=== PATIENT | male | born 1940 | race Caucasian/White ===

== ENCOUNTER 2024-10-17 18:07 | Inpatient (IN) | payer MEDICARE ==
[~2024-10-17] VITALS: Ht 153.4 cm; Wt 46.9 kg
[2024-10-17] MEDS ORDERED: DOCU100C58 PO (18:26)
[2024-10-17] MEDS ORDERED: ACET325T53 PO (18:26)
[2024-10-17] MEDS ORDERED: SITA25TA PO (18:26)
[2024-10-17] MEDS ORDERED: METF-440 PO (18:26)
[2024-10-17] MEDS ORDERED: HYDR25TA86 PO (18:26)
[2024-10-17] MEDS: IV NS 1000 ML 1,000 ML IV ONE (18:39)
[2024-10-17 18:42] LABS: PLATELET COUNT (AUTO) 500 K/uL (152-348); RED BLOOD CELL COUNT(AUTO) 3.88 MIL/uL (4.06-5.63); RED CELL DISTRIBUTION WIDTH 14.8 % (12.1-16.2); WHITE BLOOD COUNT (AUTO) 11.0 K/uL (3.6-10.2)
[2024-10-17 18:47] LABS: CREATININE 1.1 mg/dL (0.6-1.3); SODIUM SERUM 137 mmol/L (136-145); UREA NITROGEN, BLOOD 25 mg/dL (7-18)
[2024-10-17 18:52] LABS: ASPARTATE AMINOTRANSFERASE 9 U/L (15-37); TOTAL PROTEIN, SERUM 6.3 g/dL (6.4-8.2)
[2024-10-17 20:27] LABS: *CLARITY,URINE CLOUDY (CLEAR); *COLOR,URINE YELLOW (YELLOW); *PROTEIN,URINE 4+ (NEGATIVE)
[2024-10-17 20:28] LABS: *BILIRUBIN,URIN 1+ (NEGATIVE); *BLOOD, URINE 1+ (NEGATIVE); *KETONES,URINE TRACE (NEGATIVE); *UROBILINOGEN,URINE 0.2 E.U./dl (NORMAL); LEUKOCYTE ESTERASE ,URINE 3+ (NEGATIVE); NITRITE, URINE POSITIVE (NEGATIVE); UGLUCOSE NEGATIVE (NEGATIVE)
[2024-10-17 20:30] LABS: SQUAMOUS EPITHELIAL CELL,UR FEW /HPF (NONE SEEN)
[2024-10-17 21:58] VITALS: BP 151/76; TEMP 98.2; O2SAT 94
[2024-10-17] MEDS ORDERED: ONDANSETRON 4 MG/2 ML VIAL IV PRN (23:00)
[2024-10-17 23:30] VITALS: BP 158/73; TEMP 97.8; O2SAT 99
[2024-10-17] MEDS ORDERED: CEFTRIAXONE /D5W 50ML IVPB **ER PYXIS IV ONE (23:56)
[2024-10-18] MEDS: CEFTRIAXONE 1 G in IV DEXTROSE 5% 50 ML IV SCH (00:08)
[2024-10-18] MEDS: ENALAPRILAT DIHYDRATE 1.25 MG/1 ML VIAL IV PRN (04:51)
[2024-10-18 05:36] VITALS: BP 133/66; TEMP 97.6; O2SAT 97
[2024-10-18] MEDS: PANTOPRAZOLE SODIUM 40 MG TABLET.DR PO SCH (06:21)
[2024-10-18 07:03] LABS: PLATELET COUNT (AUTO) 429 K/uL (152-348); RED BLOOD CELL COUNT(AUTO) 3.68 MIL/uL (4.06-5.63); RED CELL DISTRIBUTION WIDTH 14.5 % (12.1-16.2); WHITE BLOOD COUNT (AUTO) 10.8 K/uL (3.6-10.2)
[2024-10-18 07:35] LABS: ASPARTATE AMINOTRANSFERASE 12 U/L (15-37); CREATININE 1.0 mg/dL (0.6-1.3); SODIUM SERUM 137 mmol/L (136-145); TOTAL PROTEIN, SERUM 6.3 g/dL (6.4-8.2); UREA NITROGEN, BLOOD 21 mg/dL (7-18)
[2024-10-18 07:44] VITALS: BP 116/61; TEMP 97.6; O2SAT 98
[2024-10-18 08:49] LABS: IRON, SERUM 33 ug/dL (50-175)
[2024-10-18 11:46] VITALS: BP 128/53; TEMP 98; O2SAT 96
[2024-10-18] MEDS ORDERED: DEXTROSE 50% 50 ML DISP.SYRIN IV PRN (13:00)
[2024-10-18 15:30] VITALS: BP 144/65; TEMP 97.8; O2SAT 96
[2024-10-18] MEDS: BLOOD SUGAR DIAGNOSTIC 1 EACH STRIP VI SCH (16:46)
[2024-10-18] MEDS: INSULIN REGULAR, HUMAN 1000 UNIT/10 ML VIAL SQ PRN (17:32)
[2024-10-18 19:50] VITALS: BP 123/67; TEMP 97.8; O2SAT 98
[2024-10-18] MEDS ORDERED: IOHEXOL 300MG/ML 100 ML INFUS..BTL ONE (21:48)
[2024-10-18] MEDS ORDERED: IV NORMAL SALINE 250 ML IV ONE (21:48)
[2024-10-18] MEDS ORDERED: SWABABLE VALVE TRANSFER SET EA MC ONE (21:48)
[2024-10-18] MEDS: CLOTRIMAZOLE/BETAMET DIPROP CREAM 15 GM TUBE TOP SCH (22:23)
[2024-10-18] MEDS: DOCUSATE SODIUM 100 MG CAPSULE PO SCH (22:23)
[2024-10-18] MEDS: REMEDY ESSENTIAL ZINC PASTE 113 GM TP SCH (22:24)
[2024-10-19 00:55] VITALS: BP 120/64; TEMP 98.7; O2SAT 97
[2024-10-19 05:45] LABS: PLATELET COUNT (AUTO) 421 K/uL (152-348); RED BLOOD CELL COUNT(AUTO) 3.47 MIL/uL (4.06-5.63); RED CELL DISTRIBUTION WIDTH 14.9 % (12.1-16.2); WHITE BLOOD COUNT (AUTO) 10.4 K/uL (3.6-10.2)
[2024-10-19 06:29] LABS: CREATININE 1.1 mg/dL (0.6-1.3); SODIUM SERUM 137 mmol/L (136-145); UREA NITROGEN, BLOOD 20 mg/dL (7-18)
[2024-10-19 06:42] LABS: IRON, SERUM 42 ug/dL (50-175)
[2024-10-19 06:43] VITALS: BP 117/65; TEMP 98.5; O2SAT 97
[2024-10-19 07:23] VITALS: BP 112/65; TEMP 97.8; O2SAT 98
[2024-10-19 11:09] VITALS: BP 145/63; TEMP 99.3; O2SAT 98
[2024-10-19 15:57] VITALS: BP 121/59; TEMP 98.7; O2SAT 98
[2024-10-19] MEDS: CEFEPIME HCL 1 G in IV DEXTROSE 5% 50 ML IV SCH (20:43)
[2024-10-19] MEDS ORDERED: CEFEPIME HCL 2 GM in IV DEXTROSE 5% 100 ML IV SCH (22:00)
[2024-10-20 07:17] VITALS: BP 147/77; TEMP 98.8; O2SAT 98
[2024-10-20 07:31] LABS: CREATININE 0.9 mg/dL (0.6-1.3); SODIUM SERUM 138 mmol/L (136-145); UREA NITROGEN, BLOOD 23 mg/dL (7-18)
[2024-10-20 07:39] LABS: PLATELET COUNT (AUTO) 473 K/uL (152-348); RED BLOOD CELL COUNT(AUTO) 3.58 MIL/uL (4.06-5.63); RED CELL DISTRIBUTION WIDTH 14.3 % (12.1-16.2); WHITE BLOOD COUNT (AUTO) 11.0 K/uL (3.6-10.2)
[2024-10-20 12:00] VITALS: BP 147/79; TEMP 98.2; O2SAT 100
[2024-10-20] MEDS ORDERED: IOHEXOL 300MG/ML 100 ML INFUS..BTL ONE (15:14)
[2024-10-20 15:18] LABS: IRON, SERUM 36.0 ug/dL (50-175); LACTATE DEHYDROGENASE 230.0 U/L (85-227)
[2024-10-20] MEDS ORDERED: NEUTRA PHOS PACKET PO SCH (16:30)
[2024-10-20 16:47] VITALS: BP 131/69; TEMP 98; O2SAT 98
[2024-10-20 19:33] VITALS: BP 149/77; TEMP 97.9; O2SAT 93
[2024-10-20] MEDS: MEROPENEM 1 G in IV NORMAL SALINE 100 ML IV SCH (20:25)
[2024-10-20] MEDS ORDERED: NITROFURANTOIN/NITROFURAN MAC 100 MG CAPSULE PO SCH (21:00)
[2024-10-20] MEDS ORDERED: MEROPENEM 1 G in IV NORMAL SALINE 100 ML IV SCH (22:00)
[2024-10-20] MEDS ORDERED: VANCOMYCIN IV 200 ML ONE (22:09)
[2024-10-20] MEDS: VANCOMYCIN IV 1,000 MG in IV DEXTROSE 5% 250 ML IV ONE (22:21)
[2024-10-21 06:24] VITALS: BP 147/79; TEMP 98.8; O2SAT 100
[2024-10-21 06:24] LABS: PLATELET COUNT (AUTO) 368 K/uL (152-348); RED BLOOD CELL COUNT(AUTO) 3.36 MIL/uL (4.06-5.63); RED CELL DISTRIBUTION WIDTH 14.4 % (12.1-16.2); WHITE BLOOD COUNT (AUTO) 13.1 K/uL (3.6-10.2)
[2024-10-21 06:39] LABS: ASPARTATE AMINOTRANSFERASE 11 U/L (15-37); CREATININE 1.0 mg/dL (0.6-1.3); SODIUM SERUM 136 mmol/L (136-145); TOTAL PROTEIN, SERUM 6.1 g/dL (6.4-8.2); UREA NITROGEN, BLOOD 20 mg/dL (7-18)
[2024-10-21] MEDS ORDERED: PROPOFOL 200 MG/20 ML BOTTLE ONE (06:45)
[2024-10-21] MEDS ORDERED: BUPIVACAINE HCL/DEX-WATER/PF 0.75%, 2 ML AMPUL ONE (06:50)
[2024-10-21] MEDS ORDERED: CEFAZOLIN 1 G VIAL IV SCH (08:30)
[2024-10-21 09:07] LABS: CARCINOEMBRYONIC AG (CEA) 6.4 ng/mL (0.0-4.7)
[2024-10-21 10:56] VITALS: BP 157/74; TEMP 97.6; O2SAT 100
[2024-10-21] MEDS: MEROPENEM 1 G in IV NORMAL SALINE 100 ML IV SCH (11:13)
[2024-10-21] MEDS: CEFAZOLIN 1 G in IV DEXTROSE 5% 50 ML IV SCH (14:56)
[2024-10-21 14:58] VITALS: BP 132/57; TEMP 98.2; O2SAT 98
[2024-10-21 19:25] VITALS: BP 152/71; TEMP 98.4; O2SAT 100
[2024-10-22 06:39] VITALS: BP 149/75; TEMP 99.6; O2SAT 99
[2024-10-22 06:47] LABS: PLATELET COUNT (AUTO) 462 K/uL (152-348); RED BLOOD CELL COUNT(AUTO) 3.55 MIL/uL (4.06-5.63); RED CELL DISTRIBUTION WIDTH 14.6 % (12.1-16.2); WHITE BLOOD COUNT (AUTO) 13.8 K/uL (3.6-10.2)
[2024-10-22 07:19] LABS: CREATININE 1.1 mg/dL (0.6-1.3); SODIUM SERUM 141 mmol/L (136-145); UREA NITROGEN, BLOOD 22 mg/dL (7-18)
[2024-10-22] MEDS: HYDROCODONE/APAP 5-325MG TABLET PO PRN (08:41)
[2024-10-22 10:07] LABS: FREE KAPPA LT CHAINS SERUM 63.8 mg/L (3.3-19.4); FREE LAMBDA LT CHAIN SERUM 54.6 mg/L (5.7-26.3); KAPPA/LAMBDA RATIO SERUM 1.17 (0.26-1.65)
[2024-10-22 11:37] VITALS: BP 139/76; TEMP 97.8; O2SAT 97
[2024-10-22] MEDS: NEUTRA PHOS PACKET PO ONE (13:20)
[2024-10-22 15:56] VITALS: BP 147/79; TEMP 98.9; O2SAT 98
[2024-10-22 19:00] VITALS: BP 171/89; TEMP 98.8; O2SAT 96
[2024-10-22] MEDS: TEMAZEPAM 7.5 MG CAPSULE PO PRN (20:41)
[2024-10-22] MEDS: ACETAMINOPHEN 325 MG TABLET PO PRN (21:00)
[2024-10-23 06:23] VITALS: BP 123/63; TEMP 98.4; O2SAT 97
[2024-10-23 06:44] LABS: PLATELET COUNT (AUTO) 424 K/uL (152-348); RED BLOOD CELL COUNT(AUTO) 3.34 MIL/uL (4.06-5.63); RED CELL DISTRIBUTION WIDTH 14.6 % (12.1-16.2); WHITE BLOOD COUNT (AUTO) 11.4 K/uL (3.6-10.2)
[2024-10-23 08:07] LABS: *IMMUNOGLOBULIN G, SERUM 832 mg/dL (603-1613); IMMUNOGLOBULIN A, SERUM 468 mg/dL (61-437); IMMUNOGLOBULIN M, SERUM 62 mg/dL (15-143)
[2024-10-23 11:47] VITALS: BP 132/64; TEMP 97.6; O2SAT 97
[2024-10-23 12:07] LABS: A/G RATIO 0.8 (0.7-1.7); BETA GLOBULIN 0.8 g/dL (0.7-1.3); GLOBULIN, TOTAL 3.1 g/dL (2.2-3.9); M-SPIKE 0.5 g/dL (Not Observed); PROTEIN, TOTAL 5.7 g/dL (6.0-8.5)
[2024-10-23 16:10] VITALS: BP 131/67; TEMP 99.3; O2SAT 97
[2024-10-23 19:35] VITALS: BP 131/51; TEMP 99.6; O2SAT 95
[2024-10-24 05:55] VITALS: BP 157/85; TEMP 98.6; O2SAT 96
[2024-10-24 07:26] LABS: PLATELET COUNT (AUTO) 428 K/uL (152-348); RED BLOOD CELL COUNT(AUTO) 3.49 MIL/uL (4.06-5.63); RED CELL DISTRIBUTION WIDTH 14.4 % (12.1-16.2); WHITE BLOOD COUNT (AUTO) 12.8 K/uL (3.6-10.2)
[2024-10-24 10:32] VITALS: BP 143/56; TEMP 98.8; O2SAT 94
[2024-10-24 15:38] VITALS: BP 136/72; TEMP 99; O2SAT 95
[2024-10-24] MEDS ORDERED: LIDOCAINE HCL 1% 20 ML VIAL IJ PRN (15:45)
[2024-10-24 19:35] VITALS: BP 131/61; TEMP 98.9; O2SAT 96
[2024-10-25 04:59] VITALS: BP 115/64; TEMP 98.5; O2SAT 93
[2024-10-25 06:51] LABS: PLATELET COUNT (AUTO) 442 K/uL (152-348); RED BLOOD CELL COUNT(AUTO) 3.29 MIL/uL (4.06-5.63); RED CELL DISTRIBUTION WIDTH 14.3 % (12.1-16.2); WHITE BLOOD COUNT (AUTO) 12.9 K/uL (3.6-10.2)
[2024-10-25 07:19] LABS: FIBRINOGEN ACTIVITY 513.0 mg/dL (210-360)
[2024-10-25] MEDS ORDERED: MORPHINE SULFATE 2 MG/1 ML DISP.SYRIN IV ONE (10:15)
[2024-10-25] MEDS ORDERED: LORAZEPAM 1 MG TABLET PO ONE (10:15)
[2024-10-25 11:25] VITALS: BP 138/72; TEMP 98.6; O2SAT 97
[2024-10-25] MEDS: FERROUS SULFATE 325 MG TABEC PO SCH (15:18)
[2024-10-25 15:36] VITALS: BP 136/71; TEMP 97.8; O2SAT 98
== END 2024-10-25 17:50 | DRG 669 ==
LOC: ER 18:17 → TELE3 21:00 → MEDSURG3 10-19 11:31
PROVIDERS: ADMIT Internal Medicine; ATTEND Nurse Practitioner Family
PROC: 05HB33Z Insertion of Infusion Device into Right Basilic Vein, Percutaneous Approach (ICD-10-PCS; 2024-10-20)
PROC: 0TBB8ZX Excision of Bladder, Via Natural or Artificial Opening Endoscopic, Diagnostic (ICD-10-PCS; principal; 2024-10-21 07:00)
DX: C67.0 Malignant neoplasm of trigone of bladder (principal); C64.2 Malignant neoplasm of left kidney, except renal pelvis; N13.6 Pyonephrosis; Z68.1 Body mass index [BMI] 19.9 or less, adult; E44.0 Moderate protein-calorie malnutrition; Z16.12 Extended spectrum beta lactamase (ESBL) resistance; I13.0 Hypertensive heart and chronic kidney disease with heart failure and stage 1 through stage 4 chronic kidney disease, or unspecified chronic kidney disease; C78.02 Secondary malignant neoplasm of left lung; C78.01 Secondary malignant neoplasm of right lung; R31.9 Hematuria, unspecified; R62.7 Adult failure to thrive; R59.0 Localized enlarged lymph nodes; E86.0 Dehydration; H91.93 Unspecified hearing loss, bilateral; Z79.84 Long term (current) use of oral hypoglycemic drugs; Z85.828 Personal history of other malignant neoplasm of skin; Z85.528 Personal history of other malignant neoplasm of kidney; Z92.3 Personal history of irradiation; B96.20 Unspecified Escherichia coli [E. coli] as the cause of diseases classified elsewhere; B96.1 Klebsiella pneumoniae [K. pneumoniae] as the cause of diseases classified elsewhere; K76.0 Fatty (change of) liver, not elsewhere classified; E78.5 Hyperlipidemia, unspecified; D47.2 Monoclonal gammopathy; R97.20 Elevated prostate specific antigen [PSA]; N21.0 Calculus in bladder; E11.22 Type 2 diabetes mellitus with diabetic chronic kidney disease; N18.30 Chronic kidney disease, stage 3 unspecified; I50.9 Heart failure, unspecified; I1A.0 Resistant hypertension; F17.210 Nicotine dependence, cigarettes, uncomplicated; Z86.73 Personal history of transient ischemic attack (TIA), and cerebral infarction without residual deficits; I48.0 Paroxysmal atrial fibrillation; D63.8 Anemia in other chronic diseases classified elsewhere; J44.9 Chronic obstructive pulmonary disease, unspecified; N40.0 Benign prostatic hyperplasia without lower urinary tract symptoms; F03.90 Unspecified dementia, unspecified severity, without behavioral disturbance, psychotic disturbance, mood disturbance, and anxiety; D75.839 Thrombocytosis, unspecified; K76.89 Other specified diseases of liver; Z88.0 Allergy status to penicillin
CPT/HCPCS: 36415; 70450; 71045; 71260; 76770; 82378; 82746; 82784; 83550; 83605; 83615; 83735; 84100; 84153; 84155; 84165; 84443; 84484; 85025; 85610; 85730; 86334; 87040; 87077; 87086; 93307; A4606; A4663; A6209; A6213; G0378; J0690; J0692; J0696; J1815; J2185; J3373; J3490; J7040; J7050; Q9967